=== PATIENT | female | born 1970 | race Caucasian/White ===

== ENCOUNTER 2016-05-16 17:53 | Inpatient (IN) | payer BC ==
[~2016-05-16] VITALS: Ht 167.6 cm; Wt 54.9 kg
[~2016-05-16 17:53] MED LIST: BACL20TA PO; DIME120C2 PO; DOCU250C68 PO; FLUC200T36 PO; HYDR-906 PO; IBUP200C70 PO; gabapentin
[2016-05-16 20:45] VITALS: BP 125/53; PULSE 60; RESP 18
[2016-05-16 22:00] VITALS: Ht 167.6 cm; Wt 54.9 kg
[2016-05-16] MEDS ORDERED: MAGNESIUM HYDROXIDE 30ML CUP PO PRN (23:30)
[2016-05-16] MEDS ORDERED: DOCUSATE SODIUM 100 MG CAP PO PRN (23:30)
[2016-05-16] MEDS ORDERED: ONDANSETRON 4 MG INJ IV PRN (23:30)
[2016-05-16] MEDS ORDERED: BISACODYL 10 MG SUPP PR PRN (23:30)
[2016-05-16] MEDS ORDERED: NACL 0.9% 3 ML SYG IV SCH (23:30)
[2016-05-16] MEDS ORDERED: BISACODYL (EC) 5 MG TAB PO PRN (23:30)
[2016-05-16] MEDS ORDERED: NA PHOSPHATE/BIPHOS 133 ML ENEMA PR PRN (23:30)
[2016-05-16] MEDS ORDERED: ACETAMINOPHEN 650 MG SUPP PR PRN (23:30)
[2016-05-17] VITALS (9 sets, daily range): BP systolic 74–98; BP diastolic 40–58; PULSE 77–92; RESP 16–20
[2016-05-17] MEDS: SOD CHLORIDE 0.9% 1,000 ML IV SCH ×2 (00:27→16:37)
[2016-05-17] MEDS: PANTOPRAZOLE 40 MG INJ IV SCH (05:49)
[2016-05-17] MEDS: BACLOFEN 10 MG TAB PO PRN ×3 (05:53→17:26)
[2016-05-17] MEDS: DOCUSATE SODIUM 250 MG CAP PO SCH (09:14)
[2016-05-17] MEDS: ENOXAPARIN 40 MG/0.4 ML SYG SC SCH (09:16)
[2016-05-17] MEDS ORDERED: SOD CHLORIDE 0.9% 500 ML IV STA (14:51)
[2016-05-17] MEDS ORDERED: VANCOMYCIN IV PER PHARMACY XX SCH (16:00)
--- NOTE | 2016-05-17 16:05 | QN ---
Documentation Comment [id number] SMITH GONZALEZ MD May 17, 2016 16:05
--- NOTE | 2016-05-17 16:28 | CONS ---
DATE OF ADMISSION: 05/16/2016 DATE OF CONSULTATION: 05/17/2016 TYPE OF CONSULTATION: Infectious disease. REASON FOR CONSULTATION: Antibiotic management. HISTORY OF PRESENT ILLNESS: Nanci Haywood is a 45-year-old unfortunate white female who comes in w ith osteomyelitis of her right ankle. Her past problems include: 1. Progressive multiple sclerosis, diagnosed at age 23. 2. Multiple urinary tract infections. 3. History of a heart murmur. 4. Scoliosis. 5. Depression. 6. Constipation. 7. Right ankle osteomyelitis. The patient reportedly had an ankle wound for at least 4 weeks. She has a wound over the lateral ma lleolus that probes down to bone. X-ray was done which showed severe osteoporosis. There is swelli ng around the ankle and hindfoot. PAST MEDICAL HISTORY: Operations as outlined. FAMILY HISTORY: Noncontributory. SOCIAL HISTORY: She does not smoke, drink or abuse drugs. ALLERGIES: 1. SULFA. 2. MORPHINE. 3. PROCHLORPERAZINE. MEDICATIONS: Per chart. REVIEW OF SYSTEMS: As per HPI. PHYSICAL EXAMINATION: GENERAL: The patient is a chronically ill-appearing white female who is alert, responsive, in no acu te distress. VITAL SIGNS: Stable. She is afebrile. SKIN: Without generalized rash. HEENT: Within normal limits. NECK: Supple. LYMPH NODES: None palpable. CHEST: Decreased breath sounds at the bases. HEART: Without murmur or gallop. ABDOMEN: Soft, nontender, without organosplenomegaly or masses. EXTREMITIES: The right ankle has a significant circumscribed area with granulation tissue within th e circumscribed area. RECTAL AND GENITAL EXAM: Deferred. The right buttock has a number of different lesions or excoriati ons as well as. NEUROLOGIC EVALUATION: Limited. She has marked contractures. She responds to questions. ASSESSMENT: Findings from the x-ray of the ankle from [facility] shows bone destruction in the lateral c ortex of the lateral malleolus, severe osteoporosis, stable-appearing ankle joint, swelling around t he ankle on the hindfoot. The bone destruction is due to osteomyelitis in the lateral cortex of the lateral malleolus. Microbiology was ordered. A wound consultation was ordered. The patient is cu rrently on no antibiotics. We are going to get blood cultures x2, culture of the wound, start her o n vancomycin and Levaquin, have podiatry evaluate her. I will dictate my findings to Dr. Narvaez. Dictated By: WENDY WALLACE MD, JD/CAN Conf#: [id number] DID#: [id number]
[2016-05-17] MEDS ORDERED: CEFTRIAXONE 500 MG in SOD CHLORIDE 0.9% 50 ML IVPB SCH (16:30)
--- NOTE | 2016-05-17 16:59 | HP ---
DATE OF ADMISSION: 05/16/2016 HISTORY OF PRESENT ILLNESS: Nanci Haywood is an 45-year-old female who was transferred from [facility] with the diagnosis of osteomyelitis. Patient has x-ray of the right ankle that was done, shows bone destruction due to _lateral malleolus, osteoporosis, stable appearing right ankle, gas is evident in soft tissue. The patient is being admitted for further management. Patient denies any fevers, chills or rigors. PAST MEDICAL HISTORY: Positive for multiple sclerosis, bed bound. The patient has decubitus wound. The patient also has history of contraction of hip and knee area. The patient has a history of anemia as well. ALLERGY HISTORY: 1. SULFA. 2. MORPHINE. 3. PROCHLORPERAZINE. MEDICATIONS AT HOME: Listed as: 1. Baclofen. 2. Rocephin. 3. Gabapentin. 4. Senna. 5. Tylenol. 6. Advil. 7. Colace. 8. Cranberry extract. 9. Heparin. 10. Ibuprofen. 11. Interferon beta, 1-a subcutaneous. 12. Nitrofurantoin 13. [place]. REVIEW OF SYSTEMS HEENT: Unremarkable. RESPIRATORY: Unremarkable. CARDIOVASCULAR: Unremarkable. ABDOMEN: Unremarkable. EXTREMITIES: Foot wound noted. CENTRAL NERVOUS SYSTEM: Unremarkable. PHYSICAL EXAMINATION: GENERAL: Pale-looking female, awake, alert. VITAL SIGNS: Stable. HEAD: Atraumatic, normocephalic. Pupils are equal and reactive. No pallor or conjunctival icterus. NECK: Supple. LUNGS: Clear. CARDIOVASCULAR: S1, S2 normal. ABDOMEN: Soft, nontender. Bowel sounds were normal . EXTREMITIES: Contraction noted of the lower extremity. The patient is awake, alert. [employer] examination with weakness of both upper and lower extremities. IMPRESSION: 1. Patient has a decubitus wound of the lower extremity. 2. The patient has multiple sclerosis, urinary incontinence, constipation, neuropathy. PLAN: To continue current treatment. Podiatry consultation will be obtained. Orders were done. Dictated By: SMITH GONZALEZ MD BS/NTS Conf#: [id number] DID#: [id number] [id number]
[2016-05-17] MEDS ORDERED: VANCOMYCIN 1.25 GM in SOD CHLORIDE 0.9% 250 ML IVPB ONE (17:00)
[2016-05-17] MEDS: LEVOFLOXACIN 500 MG TAB PO SCH (17:10)
[2016-05-17] MEDS: COLLAGENASE 30 GM TUBE TOP SCH (20:55)
[2016-05-18] MEDS: BACLOFEN 10 MG TAB PO PRN ×4 (04:24→20:37)
[2016-05-18] MEDS: PANTOPRAZOLE 40 MG INJ IV SCH (06:11)
[2016-05-18] MEDS: VANCOMYCIN 1 GM in NS 250 ML IVPB SCH ×2 (06:11→18:27)
[2016-05-18] MEDS: LEVOFLOXACIN 500 MG TAB PO SCH (06:11)
[2016-05-18 06:25] LABS: ADD SCAN DIFF NO
[2016-05-18 06:29] LABS: BASOPHILS % 0.2 % (0.0-2.0); EOSINOPHILS # 0.1 10^3/ul (0.0-0.5); EOSINOPHILS % 1.8 % (0.0-7.0); HEMOGLOBIN 10.5 g/dl (12.0-16.0); LYMPHOCYTES % 17.3 % (15.0-51.0); MEAN CORPUSCULAR HEMOGLOBIN 27.7 pg (29.0-33.0); MEAN CORPUSCULAR HGB CONC 31.8 g/dl (32.0-37.0); MEAN CORPUSCULAR VOLUME 87.1 fl (82.0-101.0); MEAN PLATELET VOLUME 9.7 fl (7.4-10.4); MONOCYTE # 0.4 10^3/ul (0.3-0.9); MONOCYTES % 7.3 % (0.0-11.0); NEUTROPHILS % 73.2 % (39.0-77.0); PLATELET COUNT 342 10^3/UL (140-415); RED BLOOD COUNT 3.79 10^6/ul (4.20-5.40); RED CELL DISTRIBUTION WIDTH 12.6 % (11.5-14.5); WHITE BLOOD COUNT 5.5 10^3/ul (4.8-10.8)
[2016-05-18 06:54] LABS: ALBUMIN 3.2 g/dl (3.3-4.9)
[2016-05-18 06:57] LABS: ALBUMIN/GLOBULIN RATIO 0.94; CREATININE 0.42 mg/dl (0.44-1.00); TOTAL PROTEIN 6.6 g/dl (6.1-8.1)
[2016-05-18 06:58] LABS: CALCIUM 8.7 mg/dl (8.4-10.2)
[2016-05-18 08:17] VITALS: BP 103/54; RESP 20
[2016-05-18] MEDS: DOCUSATE SODIUM 250 MG CAP PO SCH (10:21)
[2016-05-18] MEDS: HYDROCODONE/APAP (5/325) TAB PO PRN (10:21)
[2016-05-18] MEDS: COLLAGENASE 30 GM TUBE TOP SCH (10:22)
[2016-05-18] MEDS: ENOXAPARIN 40 MG/0.4 ML SYG SC SCH (10:33)
--- NOTE | 2016-05-18 11:05 | PN ---
DATE: 05/18/2016 SUBJECTIVE: No acute events. The patient is lying comfortably in bed. Denies pain. No fevers. WBC 5.5, platelets 342, no shift, no bands. BUN 4, creatinine 0.42. ANTIMICROBIALS: 1. Levaquin. 2. Vancomycin. INDWELLINGS: [place], peripheral IV. PHYSICAL EXAMINATION: GENERAL: This is a fragile, chronically ill-appearing, cachectic, middle-aged woman who is in no di stress. HEENT: Head atraumatic, normocephalic. Sclerae anicteric. Buccal mucosa dry. NECK: Supple, trachea midline. CHEST: Rise symmetrical. Breath sounds diminished to bases. HEART: S1, S2. ABDOMEN: Soft, bowel sounds present. EXTREMITIES: With right ankle dressing intact. ASSESSMENT: 1. Right ankle wound with evidence of osteomyelitis per x-ray from another facility. 2. Advanced multiple sclerosis. 3. Cachexia. 4. Depression. 5. Anemia. PLAN: The patient remains stable. Continue antibiotics, local wound care, await for wound cultures and blood cultures, consider podiatry evaluation. Dictated By: POP YOUNG [employer]IKE OPERATIONS OFFICER for WENDY WALLACE MD NI/NTS Conf#: [id number] DID#: [id number]
--- NOTE | 2016-05-18 17:54 | PN ---
Date/Time of Note Date/Time of Note DATE: 05/18/16 TIME: 17:52 Assessment/Plan VTE Prophylaxis VTE Prophylaxis Intervention: other Lines/Catheters IV Catheter Type (from Nrs): Peripheral IV Urinary Cath still in place: Yes Reason Cath still needed: other (indicate) Assessment/Plan Chief Complaint/Hosp Course IMPRESSION: 1. Patient has a decubitus wound of the lower extremity. 2. The patient has multiple sclerosis, urinary incontinence, constipation, neuropathy. 3 OSTEOMYELITES PLAN PER ID PODIATRY PENDING Problems: Subjective 24 Hr Interval Summary Subjective hx not possible: other (WEAKNESS) Respiratory: no complaints Cardiovascular: no complaints Exam/Review of Systems Vital Signs Vitals Vital Signs Date Time Temp Pulse Resp B/P Pulse Ox O2 Delivery O2 Flow Rate FiO2 05/18/16 08:17 98.4 76 20 103/54 93 05/16/16 20:45 Room Air Intake and Output 05/17/16 05/17/16 05/18/16 15:00 23:00 07:00 Intake Total 2710 ml 1600 ml Output Total 450 ml 1650 ml Balance 2260 ml -50 ml Exam Neck: supple Respiratory: clear to auscultation Cardiovascular: regular rate and rhythm Gastrointestinal: soft Musculoskeletal: nl extremities to inspection Extremities: normal pulses Skin: other (FOOT WOUND+) Results Result Diagram: 05/18/16 0535 05/18/16 0535 Results 24 hrs Laboratory Tests Test 05/18/16 05:35 Alanine Aminotransferase (ALT/SGPT) 27 Albumin 3.2 L Albumin/Globulin Ratio 0.94 Alkaline Phosphatase 69 Anion Gap 17 H Aspartate Amino Transf (AST/SGOT) 19 Basophils # 0.0 Basophils % 0.2 Blood Urea Nitrogen 4 L Calcium Level 8.7 Carbon Dioxide Level 26 Chloride Level 104 Creatinine 0.42 L Direct Bilirubin 0.00 Eosinophils # 0.1 Eosinophils % 1.8 Globulin 3.40 H Glucose Level 91 Hematocrit 33.0 L Hemoglobin 10.5 L Indirect Bilirubin 0.0 Lymphocytes # 1.0 Lymphocytes % 17.3 Mean Corpuscular Hemoglobin 27.7 L Mean Corpuscular Hemoglobin Concent 31.8 L Mean Corpuscular Volume 87.1 Mean Platelet Volume 9.7 Monocytes # 0.4 Monocytes % 7.3 Neutrophils # 4.0 Neutrophils % 73.2 Nucleated Red Blood Cells # 0.0 Nucleated Red Blood Cells % 0.0 Platelet Count 342 Potassium Level 4.0 Red Blood Count 3.79 L Red Cell Distribution Width 12.6 Sodium Level 143 Total Bilirubin 0.0 L Total Protein 6.6 White Blood Count 5.5 Medications Medications Current Medications Baclofen (Lioresal) 20 mg Q4 PRN PO MUSCLE SPASMS Last administered on 15:54; Admin Dose 20 MG; Start 05/16/16 at 23:30 Docusate Sodium (Colace) 250 mg DAILY PO Last administered on 05/18/16 10:21; Admin Dose 250 MG; Start 05/17/16 at 09:00 Acetaminophen/ Hydrocodone Bitart 1 tab 1 tab Q6 PRN PO PAIN Last administered on 05/18/16 10:21; Admin Dose 1 TAB; Start 05/16/16 at 23:30 Sodium Chloride (NS) 1,000 ml @ 40 mls/hr Q24H IV Last administered on 16:37; Admin Dose 40 MLS/HR; Start 05/16/16 at 23:01 Ondansetron HCl (Zofran Inj) 4 mg Q6H PRN IV NAUSEA AND/OR VOMITING; Start 05/16 at 23:30 Acetaminophen (Tylenol Tab) 650 mg Q6H PRN PO PAIN LEVEL 1-3 OR FEVER; Start at 23:30 Acetaminophen (Tylenol Supp) 650 mg Q6H PRN [place] PAIN LEVEL 1-3 OR FEVER; Start 05/16/16 at 23:30 Ibuprofen (Motrin) 600 mg Q6H PRN PO PAIN LEVEL 1-3; Start 05/16/16 at 23:30 Docusate Sodium (Colace) 100 mg Q12H PRN PO CONSTIPATION; Start 05/16/16 at 23: 30 Magnesium Hydroxide (Milk Of Mag) 30 ml DAILY PRN PO CONSTIPATION; Start at 23:30 Bisacodyl (Dulcolax) 5 mg DAILY PRN PO CONSTIPATION; Start 05/16/16 at 23:30 Bisacodyl (Dulcolax Supp) 10 mg DAILY PRN [place] CONSTIPATION; Start 05/16/16 at 23: 30 Sodium Biphosphate/ Sodium Phosphate (Fleet Enema) 133 ml DAILY PRN [place] CONSTIPATION; Start 05/16/16 at 23:30 Enoxaparin Sodium (Lovenox) 40 mg DAILY SC Last administered on 05/18/16 10:33 ; Admin Dose 40 MG; Start 05/17/16 at 09:00 Levofloxacin 500 mg 500 mg DAILY@06 PO Last administered on 05/18/16 06:11; Admin Dose 500 MG; Start 05/17/16 at 17:00 Vancomycin HCl (Vancocin) 250 ml @ 125 mls/hr Q12H IVPB Last administered on 06:11; Admin Dose 125 MLS/HR; Start 05/18/16 at 06:00 Collagenase (Santyl) 1 applic DAILY TOP Last administered on 05/18/16 10:22; Admin Dose 1 APPLIC; Start 05/17/16 at 21:00 Miscellaneous Information (*Rx Drug Level Order Reminder*) VANCO TROUGH @ 0, 500 ON... ONCE ONCE XX ; Start 05/19/16 at 05:00; Stop 05/19/16 at 05:01 Pantoprazole (Protonix Tab) 40 mg DAILY@06 PO ; Start 05/19/16 at 06:00 SMITH GONZALEZ MD May 18, 2016 17:54
[2016-05-18 20:00] VITALS: BP 125/59; RESP 18
[2016-05-18 20:34] VITALS: BP 125/59; PULSE 62; RESP 16
[2016-05-18] MEDS: SOD CHLORIDE 0.9% 1,000 ML IV SCH (23:01)
[2016-05-19] MEDS: BACLOFEN 10 MG TAB PO PRN ×5 (00:09→17:51)
[2016-05-19] MEDS: IBUPROFEN 600 MG TAB PO PRN ×2 (00:33→14:56)
[2016-05-19] MEDS: PANTOPRAZOLE (EC) 40 MG TAB PO SCH (05:05)
[2016-05-19] MEDS: LEVOFLOXACIN 500 MG TAB PO SCH (05:05)
[2016-05-19] MEDS: VANCOMYCIN 1 GM in NS 250 ML IVPB SCH ×2 (06:23→17:51)
[2016-05-19] MEDS: COLLAGENASE 30 GM TUBE TOP SCH ×2 (06:47→08:58)
[2016-05-19] MEDS: DOCUSATE SODIUM 250 MG CAP PO SCH (08:59)
[2016-05-19] MEDS: ENOXAPARIN 40 MG/0.4 ML SYG SC SCH (09:02)
--- NOTE | 2016-05-19 13:38 | CONS ---
Date/Time of Note Date/Time of Note DATE: 05/19/16 TIME: 13:37 Assessment/Plan Assessment/Plan Chief Complaint/Hosp Course SUBJECTIVE: No acute events. The patient is alert, eating lunch, feels good, no fevers, nad ANTIMICROBIALS: 1. Levaquin. 2. Vancomycin. INDWELLINGS: [place], peripheral IV. PHYSICAL EXAMINATION: GENERAL: This is a fragile, chronically ill-appearing, cachectic, middle-aged woman who is in no distress. HEENT: Head atraumatic, normocephalic. Sclerae anicteric. Buccal mucosa dry. NECK: Supple, trachea midline. CHEST: Rise symmetrical. Breath sounds diminished to bases. HEART: S1, S2. ABDOMEN: Soft, bowel sounds present. EXTREMITIES: With right ankle dressing intact. ASSESSMENT: 1. Right ankle wound with evidence of osteomyelitis per x-ray from another facility. 2. Advanced multiple sclerosis. 3. Cachexia. 4. Depression. 5. Anemia. PLAN: The patient remains stable. Continue antibiotics, local wound care, await for wound cultures and blood cultures, pending podiatry evaluation. DW staff Problems: Consultation Date/Type/Reason Admit Date/Time May 16, 2016 at 21:29 Initial Consult Date Type of Consultation: ID Exam/Review of Systems Vital Signs Vitals Vital Signs Date Time Temp Pulse Resp B/P Pulse Ox O2 Delivery O2 Flow Rate FiO2 05/18/16 20:34 98.4 62 16 125/59 05/18/16 20:00 96 05/16/16 20:45 Room Air Intake and Output 05/18/16 05/18/16 05/19/16 15:00 23:00 07:00 Intake Total 250 ml 1730 ml 1650 ml Output Total 1800 ml 1550 ml Balance 250 ml -70 ml 100 ml Results Result Diagram: 05/18/16 0535 05/18/16 0535 Results 24 hrs Laboratory Tests Test 05/19/16 05:00 Vancomycin Level Trough 13.0 Medications Medications Current Medications Baclofen (Lioresal) 20 mg Q4 PRN PO MUSCLE SPASMS Last administered on 13:07; Admin Dose 20 MG; Start 05/16/16 at 23:30 Docusate Sodium (Colace) 250 mg DAILY PO Last administered on 05/19/16 08:59; Admin Dose 250 MG; Start 05/17/16 at 09:00 Acetaminophen/ Hydrocodone Bitart 1 tab 1 tab Q6 PRN PO PAIN Last administered on 05/18/16 10:21; Admin Dose 1 TAB; Start 05/16/16 at 23:30 Sodium Chloride (NS) 1,000 ml @ 40 mls/hr Q24H IV Last administered on 16:37; Admin Dose 40 MLS/HR; Start 05/16/16 at 23:01 Ondansetron HCl (Zofran Inj) 4 mg Q6H PRN IV NAUSEA AND/OR VOMITING; Start 05/16 at 23:30 Acetaminophen (Tylenol Tab) 650 mg Q6H PRN PO PAIN LEVEL 1-3 OR FEVER; Start at 23:30 Acetaminophen (Tylenol Supp) 650 mg Q6H PRN [place] PAIN LEVEL 1-3 OR FEVER; Start 05/16/16 at 23:30 Ibuprofen (Motrin) 600 mg Q6H PRN PO PAIN LEVEL 1-3 Last administered on 00:33; Admin Dose 600 MG; Start 05/16/16 at 23:30 Docusate Sodium (Colace) 100 mg Q12H PRN PO CONSTIPATION; Start 05/16/16 at 23: 30 Magnesium Hydroxide (Milk Of Mag) 30 ml DAILY PRN PO CONSTIPATION; Start at 23:30 Bisacodyl (Dulcolax) 5 mg DAILY PRN PO CONSTIPATION; Start 05/16/16 at 23:30 Bisacodyl (Dulcolax Supp) 10 mg DAILY PRN [place] CONSTIPATION; Start 05/16/16 at 23: 30 Sodium Biphosphate/ Sodium Phosphate (Fleet Enema) 133 ml DAILY PRN [place] CONSTIPATION; Start 05/16/16 at 23:30 Enoxaparin Sodium (Lovenox) 40 mg DAILY SC Last administered on 05/19/16 09:02 ; Admin Dose 40 MG; Start 05/17/16 at 09:00 Levofloxacin 500 mg 500 mg DAILY@06 PO Last administered on 05/19/16 05:05; Admin Dose 500 MG; Start 05/17/16 at 17:00 Vancomycin HCl (Vancocin) 250 ml @ 125 mls/hr Q12H IVPB Last administered on 06:23; Admin Dose 125 MLS/HR; Start 05/18/16 at 06:00 Collagenase (Santyl) 1 applic DAILY TOP Last administered on 05/19/16 08:58; Admin Dose 1 APPLIC; Start 05/17/16 at 21:00 Pantoprazole (Protonix Tab) 40 mg DAILY@06 PO Last administered on 05/19/16 05: 05; Admin Dose 40 MG; Start 05/19/16 at 06:00 POP YOUNG NP May 19, 2016 13:38
--- NOTE | 2016-05-19 16:59 | PN ---
Date/Time of Note Date/Time of Note DATE: 05/19/16 TIME: 16:58 Assessment/Plan VTE Prophylaxis VTE Prophylaxis Intervention: other Lines/Catheters IV Catheter Type (from Nrsg): Peripheral IV Urinary Cath still in place: Yes Reason Cath still needed: other (indicate) Assessment/Plan Chief Complaint/Hosp Course IMPRESSION: 1. Patient has a decubitus wound of the lower extremity. 2. The patient has multiple sclerosis, urinary incontinence, constipation, neuropathy. 3 OSTEOMYELITES PLAN PER ID PODIATRY PENDING ANTIBIOTIC SNF PLACEMENT Problems: Subjective 24 Hr Interval Summary Cardiovascular: no complaints Gastrointestinal: no complaints Exam/Review of Systems Vital Signs Vitals Vital Signs Date Time Temp Pulse Resp B/P Pulse Ox O2 Delivery O2 Flow Rate FiO2 05/18/16 20:34 98.4 62 16 125/59 05/18/16 20:00 96 05/16/16 20:45 Room Air Intake and Output 05/18/16 05/18/16 05/19/16 15:00 23:00 07:00 Intake Total 250 ml 1730 ml 1650 ml Output Total 1800 ml 1550 ml Balance 250 ml -70 ml 100 ml Exam Respiratory: clear to auscultation Cardiovascular: regular rate and rhythm Gastrointestinal: soft Musculoskeletal: nl extremities to inspection Results Result Diagram: 05/18/16 0535 05/18/16 0535 Results 24 hrs Laboratory Tests Test 05/19/16 05:00 Vancomycin Level Trough 13.0 Medications Medications Current Medications Baclofen (Lioresal) 20 mg Q4 PRN PO MUSCLE SPASMS Last administered on 13:07; Admin Dose 20 MG; Start 05/16/16 at 23:30 Docusate Sodium (Colace) 250 mg DAILY PO Last administered on 05/19/16 08:59; Admin Dose 250 MG; Start 05/17/16 at 09:00 Acetaminophen/ Hydrocodone Bitart 1 tab 1 tab Q6 PRN PO PAIN Last administered on 05/18/16 10:21; Admin Dose 1 TAB; Start 05/16/16 at 23:30 Sodium Chloride (NS) 1,000 ml @ 40 mls/hr Q24H IV Last administered on 16:37; Admin Dose 40 MLS/HR; Start 05/16/16 at 23:01 Ondansetron HCl (Zofran Inj) 4 mg Q6H PRN IV NAUSEA AND/OR VOMITING; Start 05/16 at 23:30 Acetaminophen (Tylenol Tab) 650 mg Q6H PRN PO PAIN LEVEL 1-3 OR FEVER; Start at 23:30 Acetaminophen (Tylenol Supp) 650 mg Q6H PRN [place] PAIN LEVEL 1-3 OR FEVER; Start 05/16/16 at 23:30 Ibuprofen (Motrin) 600 mg Q6H PRN PO PAIN LEVEL 1-3 Last administered on 14:56; Admin Dose 600 MG; Start 05/16/16 at 23:30 Docusate Sodium (Colace) 100 mg Q12H PRN PO CONSTIPATION; Start 05/16/16 at 23: 30 Magnesium Hydroxide (Milk Of Mag) 30 ml DAILY PRN PO CONSTIPATION; Start at 23:30 Bisacodyl (Dulcolax) 5 mg DAILY PRN PO CONSTIPATION; Start 05/16/16 at 23:30 Bisacodyl (Dulcolax Supp) 10 mg DAILY PRN [place] CONSTIPATION; Start 05/16/16 at 23: 30 Sodium Biphosphate/ Sodium Phosphate (Fleet Enema) 133 ml DAILY PRN [place] CONSTIPATION; Start 05/16/16 at 23:30 Enoxaparin Sodium (Lovenox) 40 mg DAILY SC Last administered on 05/19/16 09:02 ; Admin Dose 40 MG; Start 05/17/16 at 09:00 Levofloxacin 500 mg 500 mg DAILY@06 PO Last administered on 05/19/16 05:05; Admin Dose 500 MG; Start 05/17/16 at 17:00 Vancomycin HCl (Vancocin) 250 ml @ 125 mls/hr Q12H IVPB Last administered on 06:23; Admin Dose 125 MLS/HR; Start 05/18/16 at 06:00 Collagenase (Santyl) 1 applic DAILY TOP Last administered on 05/19/16 08:58; Admin Dose 1 APPLIC; Start 05/17/16 at 21:00 Pantoprazole (Protonix Tab) 40 mg DAILY@06 PO Last administered on 05/19/16 05: 05; Admin Dose 40 MG; Start 05/19/16 at 06:00 SMITH GONZALEZ MD May 19, 2016 16:59
[2016-05-19 20:00] VITALS: BP 103/49; RESP 18
--- NOTE | 2016-05-19 21:16 | CONS ---
Date/Time of Note Date/Time of Note DATE: 05/19/16 TIME: 21:15 Assessment/Plan Assessment/Plan Problems: (1) Ulcer of right ankle (2) Multiple sclerosis (3) Contracture of muscle of lower extremity, bilateral Additional Assessment/Plan Must offload the right lateral ankle (malleolus). Santyl to wound with daily dressing change. Will follow. Consultation Date/Type/Reason Admit Date/Time May 16, 2016 at 21:29 Hx of Present Illness Thank you very much for involving me in the care of this patient. As you very well know this is a 45-year-old female patient who was originally transferred from [facility] with diagnosis of osteomyelitis. Patient has an open wound on her right ankle and I was consulted to evaluate and treat. Patient apparently has x-rays of the right ankle which shows bony destruction to the lateral malleolus. Patient reports that she has MS and she is nonambulatory for several years. Patient denies fever chills nausea or vomiting. Reports no chest pain or shortness of breath. As per history of present illness. Respiratory: no complaints Cardiovascular: no complaints Gastrointestinal: no complaints Past Medical History As per history of present illness. Past Surgical History As per history of present illness. Social History As per history of present illness. Smoking Status: Never smoker Exam/Review of Systems Vital Signs Vitals Vital Signs Date Time Temp Pulse Resp B/P Pulse Ox O2 Delivery O2 Flow Rate FiO2 05/18/16 20:34 98.4 62 16 125/59 05/18/16 20:00 96 05/16/16 20:45 Room Air Intake and Output 05/18/16 05/18/16 05/19/16 15:00 23:00 07:00 Intake Total 250 ml 1730 ml 1650 ml Output Total 1800 ml 1550 ml Balance 250 ml -70 ml 100 ml Exam Patient is laying in bed in no acute distress. She has severe lower extremity contractures. Her right ankle is weightbearing at this time and her left foot and ankle is resting on top of the right. There is an open wound on the lateral malleolus area measuring 2 x 2 cm with probing to bone. There is fibronecrotic tissue present. There is no surrounding erythema and no drainage of pus or bleeding. There is no x-ray for me to review. X-ray will be ordered. There is no tenderness to palpation. Patient has significantly decreased sensation in the lower extremities to sharp dull vibratory and temperature stimuli. No other open wound noted bilaterally. Dorsalis pedis and posterior tibial pulses weak on both legs. Labs reviewed. Results Result Diagram: 05/18/16 0535 05/18/16 0535 Results 24 hrs Laboratory Tests Test 05/19/16 05:00 Vancomycin Level Trough 13.0 Medications Medications Current Medications Baclofen (Lioresal) 20 mg Q4 PRN PO MUSCLE SPASMS Last administered on 17:51; Admin Dose 20 MG; Start 05/16/16 at 23:30 Docusate Sodium (Colace) 250 mg DAILY PO Last administered on 05/19/16 08:59; Admin Dose 250 MG; Start 05/17/16 at 09:00 Acetaminophen/ Hydrocodone Bitart 1 tab 1 tab Q6 PRN PO PAIN Last administered on 05/18/16 10:21; Admin Dose 1 TAB; Start 05/16/16 at 23:30 Sodium Chloride (NS) 1,000 ml @ 40 mls/hr Q24H IV Last administered on 16:37; Admin Dose 40 MLS/HR; Start 05/16/16 at 23:01 Ondansetron HCl (Zofran Inj) 4 mg Q6H PRN IV NAUSEA AND/OR VOMITING; Start 05/16 at 23:30 Acetaminophen (Tylenol Tab) 650 mg Q6H PRN PO PAIN LEVEL 1-3 OR FEVER; Start at 23:30 Acetaminophen (Tylenol Supp) 650 mg Q6H PRN [place] PAIN LEVEL 1-3 OR FEVER; Start 05/16/16 at 23:30 Ibuprofen (Motrin) 600 mg Q6H PRN PO PAIN LEVEL 1-3 Last administered on 14:56; Admin Dose 600 MG; Start 05/16/16 at 23:30 Docusate Sodium (Colace) 100 mg Q12H PRN PO CONSTIPATION; Start 05/16/16 at 23: 30 Magnesium Hydroxide (Milk Of Mag) 30 ml DAILY PRN PO CONSTIPATION; Start at 23:30 Bisacodyl (Dulcolax) 5 mg DAILY PRN PO CONSTIPATION; Start 05/16/16 at 23:30 Bisacodyl (Dulcolax Supp) 10 mg DAILY PRN [place] CONSTIPATION; Start 05/16/16 at 23: 30 Sodium Biphosphate/ Sodium Phosphate (Fleet Enema) 133 ml DAILY PRN [place] CONSTIPATION; Start 05/16/16 at 23:30 Enoxaparin Sodium (Lovenox) 40 mg DAILY SC Last administered on 05/19/16 09:02 ; Admin Dose 40 MG; Start 05/17/16 at 09:00 Levofloxacin 500 mg 500 mg DAILY@06 PO Last administered on 05/19/16 05:05; Admin Dose 500 MG; Start 05/17/16 at 17:00 Vancomycin HCl (Vancocin) 250 ml @ 125 mls/hr Q12H IVPB Last administered on 17:51; Admin Dose 125 MLS/HR; Start 05/18/16 at 06:00 Collagenase (Santyl) 1 applic DAILY TOP Last administered on 05/19/16 08:58; Admin Dose 1 APPLIC; Start 05/17/16 at 21:00 Pantoprazole (Protonix Tab) 40 mg DAILY@06 PO Last administered on 05/19/16 05: 05; Admin Dose 40 MG; Start 05/19/16 at 06:00 JEFFERSON WHEELER DPM May 19, 2016 21:16
[2016-05-19] MEDS: SOD CHLORIDE 0.9% 1,000 ML IV SCH (22:10)
[2016-05-20] MEDS: BACLOFEN 10 MG TAB PO PRN ×4 (03:06→19:02)
[2016-05-20] MEDS: PANTOPRAZOLE (EC) 40 MG TAB PO SCH (06:14)
[2016-05-20] MEDS: LEVOFLOXACIN 500 MG TAB PO SCH (06:14)
[2016-05-20] MEDS: VANCOMYCIN 1 GM in NS 250 ML IVPB SCH ×2 (06:14→17:08)
[2016-05-20 08:11] VITALS: BP 105/54; RESP 16
[2016-05-20] MEDS: DOCUSATE SODIUM 250 MG CAP PO SCH (08:44)
[2016-05-20] MEDS: ENOXAPARIN 40 MG/0.4 ML SYG SC SCH (08:45)
[2016-05-20] MEDS: COLLAGENASE 30 GM TUBE TOP SCH (10:41)
[2016-05-20] MEDS: ACETAMINOPHEN 325 MG TAB PO PRN (10:44)
[2016-05-20] MEDS: HYDROCODONE/APAP (5/325) TAB PO PRN (13:16)
--- NOTE | 2016-05-20 15:34 | CONS ---
Date/Time of Note Date/Time of Note DATE: 05/20/16 TIME: 15:33 Assessment/Plan Assessment/Plan Chief Complaint/Hosp Course SUBJECTIVE: No acute events. The patient is alert, feels good, no fevers, nad ANTIMICROBIALS: 1. Levaquin. 2. Vancomycin. INDWELLINGS: [place], peripheral IV. PHYSICAL EXAMINATION: GENERAL: This is a fragile, chronically ill-appearing, cachectic, middle-aged woman who is in no distress. HEENT: Head atraumatic, normocephalic. Sclerae anicteric. Buccal mucosa dry. NECK: Supple, trachea midline. CHEST: Rise symmetrical. Breath sounds diminished to bases. HEART: S1, S2. ABDOMEN: Soft, bowel sounds present. EXTREMITIES: With right ankle dressing intact. ASSESSMENT: 1. Right ankle wound with evidence of osteomyelitis per x-ray from another facility. 2. Advanced multiple sclerosis. 3. Cachexia. 4. Depression. 5. Anemia. PLAN: The patient remains stable. Continue antibiotics, local wound care, await for final wound cultures and f/u podiatry rec-s. [facility] staff Problems: Consultation Date/Type/Reason Admit Date/Time May 16, 2016 at 21:29 Type of Consultation: ID Exam/Review of Systems Vital Signs Vitals Vital Signs Date Time Temp Pulse Resp B/P Pulse Ox O2 Delivery O2 Flow Rate FiO2 05/20/16 08:11 98.2 60 16 105/54 98 05/16/16 20:45 Room Air Intake and Output 05/19/16 05/19/16 05/20/16 15:00 23:00 07:00 Intake Total 250 ml 1370 ml 1240 ml Output Total 1300 ml 1350 ml Balance 250 ml 70 ml -110 ml Results Result Diagram: 05/18/16 0535 05/18/16 0535 Medications Medications Current Medications Baclofen (Lioresal) 20 mg Q4 PRN PO MUSCLE SPASMS Last administered on 14:59; Admin Dose 20 MG; Start 05/16/16 at 23:30 Docusate Sodium (Colace) 250 mg DAILY PO Last administered on 05/20/16 08:44; Admin Dose 250 MG; Start 05/17/16 at 09:00 Acetaminophen/ Hydrocodone Bitart 1 tab 1 tab Q6 PRN PO PAIN Last administered on 05/20/16 13:16; Admin Dose 1 TAB; Start 05/16/16 at 23:30 Sodium Chloride (NS) 1,000 ml @ 40 mls/hr Q24H IV Last administered on 22:10; Admin Dose 40 MLS/HR; Start 05/16/16 at 23:01 Ondansetron HCl (Zofran Inj) 4 mg Q6H PRN IV NAUSEA AND/OR VOMITING; Start 05/16 at 23:30 Acetaminophen (Tylenol Tab) 650 mg Q6H PRN PO PAIN LEVEL 1-3 OR FEVER Last administered on 05/20/16 10:44; Admin Dose 650 MG; Start 05/16/16 at 23:30 Acetaminophen (Tylenol Supp) 650 mg Q6H PRN [place] PAIN LEVEL 1-3 OR FEVER; Start 05/16/16 at 23:30 Ibuprofen (Motrin) 600 mg Q6H PRN PO PAIN LEVEL 1-3 Last administered on 14:56; Admin Dose 600 MG; Start 05/16/16 at 23:30 Docusate Sodium (Colace) 100 mg Q12H PRN PO CONSTIPATION; Start 05/16/16 at 23: 30 Magnesium Hydroxide (Milk Of Mag) 30 ml DAILY PRN PO CONSTIPATION; Start at 23:30 Bisacodyl (Dulcolax) 5 mg DAILY PRN PO CONSTIPATION; Start 05/16/16 at 23:30 Bisacodyl (Dulcolax Supp) 10 mg DAILY PRN [place] CONSTIPATION; Start 05/16/16 at 23: 30 Sodium Biphosphate/ Sodium Phosphate (Fleet Enema) 133 ml DAILY PRN [place] CONSTIPATION; Start 05/16/16 at 23:30 Enoxaparin Sodium (Lovenox) 40 mg DAILY SC Last administered on 05/20/16 08:45 ; Admin Dose 40 MG; Start 05/17/16 at 09:00 Levofloxacin 500 mg 500 mg DAILY@06 PO Last administered on 05/20/16 06:14; Admin Dose 500 MG; Start 05/17/16 at 17:00 Vancomycin HCl (Vancocin) 250 ml @ 125 mls/hr Q12H IVPB Last administered on 06:14; Admin Dose 125 MLS/HR; Start 05/18/16 at 06:00 Collagenase (Santyl) 1 applic DAILY TOP Last administered on 05/20/16 10:41; Admin Dose 1 APPLIC; Start 05/17/16 at 21:00 Pantoprazole (Protonix Tab) 40 mg DAILY@06 PO Last administered on 05/20/16 06: 14; Admin Dose 40 MG; Start 05/19/16 at 06:00 POP YOUNG NP May 20, 2016 15:34
[2016-05-20] MEDS ORDERED: LEVO500T72 PO (17:24)
[2016-05-20] MEDS ORDERED: SAN30GM TOP (17:24)
[2016-05-20] MEDS ORDERED: DULR PR (17:24)
[2016-05-20] MEDS ORDERED: PANT40TA4 PO (17:24)
[2016-05-20] MEDS ORDERED: Vancomycin Iv Per Pharmacy XX (17:24)
--- NOTE | 2016-05-20 17:26 | PDOCDIS ---
Discharge Instructions CONDITION Patient Condition: Stable HOME CARE INSTRUCTIONS: Special Diet: Regular Diet ACTIVITY: Activity Restrictions: Slowly Increase Activity FOLLOW UP/APPOINTMENTS Appointments F/U PCP [address] HERMOSILLO /DR PEDROZA 2 WKS SMITH GONZALEZ MD May 20, 2016 17:26
--- NOTE | 2016-05-20 17:28 | PN ---
Date/Time of Note Date/Time of Note DATE: 05/20/16 TIME: 17:27 Assessment/Plan VTE Prophylaxis VTE Prophylaxis Intervention: other Lines/Catheters IV Catheter Type (from Nrsg): Peripheral IV Urinary Cath still in place: Yes Reason Cath still needed: other (indicate) Assessment/Plan Chief Complaint/Hosp Course IMPRESSION: 1. Patient has a decubitus wound of the lower extremity. 2. The patient has multiple sclerosis, urinary incontinence, constipation, neuropathy. 3 OSTEOMYELITES PLAN PER ID PODIATRY SEEN ANTIBIOTIC SNF PLACEMENT Problems: Subjective 24 Hr Interval Summary Gastrointestinal: no complaints Genitourinary: no complaints Musculoskeletal: no complaints Exam/Review of Systems Vital Signs Vitals Vital Signs Date Time Temp Pulse Resp B/P Pulse Ox O2 Delivery O2 Flow Rate FiO2 05/20/16 08:11 98.2 60 16 105/54 98 05/16/16 20:45 Room Air Intake and Output 05/19/16 05/19/16 05/20/16 15:00 23:00 07:00 Intake Total 250 ml 1370 ml 1240 ml Output Total 1300 ml 1350 ml Balance 250 ml 70 ml -110 ml Exam Respiratory: clear to auscultation Cardiovascular: regular rate and rhythm Gastrointestinal: soft Results Result Diagram: 05/18/16 0535 05/18/16 0535 Medications Medications Current Medications Baclofen (Lioresal) 20 mg Q4 PRN PO MUSCLE SPASMS Last administered on 14:59; Admin Dose 20 MG; Start 05/16/16 at 23:30 Docusate Sodium (Colace) 250 mg DAILY PO Last administered on 05/20/16 08:44; Admin Dose 250 MG; Start 05/17/16 at 09:00 Acetaminophen/ Hydrocodone Bitart 1 tab 1 tab Q6 PRN PO PAIN Last administered on 05/20/16 13:16; Admin Dose 1 TAB; Start 05/16/16 at 23:30 Sodium Chloride (NS) 1,000 ml @ 40 mls/hr Q24H IV Last administered on 22:10; Admin Dose 40 MLS/HR; Start 05/16/16 at 23:01 Ondansetron HCl (Zofran Inj) 4 mg Q6H PRN IV NAUSEA AND/OR VOMITING; Start 05/16 at 23:30 Acetaminophen (Tylenol Tab) 650 mg Q6H PRN PO PAIN LEVEL 1-3 OR FEVER Last administered on 05/20/16 10:44; Admin Dose 650 MG; Start 05/16/16 at 23:30 Acetaminophen (Tylenol Supp) 650 mg Q6H PRN [place] PAIN LEVEL 1-3 OR FEVER; Start 05/16/16 at 23:30 Ibuprofen (Motrin) 600 mg Q6H PRN PO PAIN LEVEL 1-3 Last administered on 14:56; Admin Dose 600 MG; Start 05/16/16 at 23:30 Docusate Sodium (Colace) 100 mg Q12H PRN PO CONSTIPATION; Start 05/16/16 at 23: 30 Magnesium Hydroxide (Milk Of Mag) 30 ml DAILY PRN PO CONSTIPATION; Start at 23:30 Bisacodyl (Dulcolax) 5 mg DAILY PRN PO CONSTIPATION; Start 05/16/16 at 23:30 Bisacodyl (Dulcolax Supp) 10 mg DAILY PRN [place] CONSTIPATION; Start 05/16/16 at 23: 30 Sodium Biphosphate/ Sodium Phosphate (Fleet Enema) 133 ml DAILY PRN [place] CONSTIPATION; Start 05/16/16 at 23:30 Enoxaparin Sodium (Lovenox) 40 mg DAILY SC Last administered on 05/20/16 08:45 ; Admin Dose 40 MG; Start 05/17/16 at 09:00 Levofloxacin 500 mg 500 mg DAILY@06 PO Last administered on 05/20/16 06:14; Admin Dose 500 MG; Start 05/17/16 at 17:00 Vancomycin HCl (Vancocin) 250 ml @ 125 mls/hr Q12H IVPB Last administered on 17:08; Admin Dose 125 MLS/HR; Start 05/18/16 at 06:00 Collagenase (Santyl) 1 applic DAILY TOP Last administered on 05/20/16 10:41; Admin Dose 1 APPLIC; Start 05/17/16 at 21:00 Pantoprazole (Protonix Tab) 40 mg DAILY@06 PO Last administered on 05/20/16 06: 14; Admin Dose 40 MG; Start 05/19/16 at 06:00 SMITH GONZALEZ MD May 20, 2016 17:28
[2016-05-20 20:15] VITALS: BP 88/53; RESP 18
[2016-05-20] MEDS ORDERED: VITAMIN A & D 5 GM OINT PACKET TOP ONE (20:36)
[2016-05-20] MEDS: SOD CHLORIDE 0.9% 1,000 ML IV SCH (23:01)
[2016-05-21] MEDS: BACLOFEN 10 MG TAB PO PRN ×6 (00:23→22:44)
[2016-05-21] MEDS: SOD CHLORIDE 0.9% 1,000 ML IV SCH ×2 (04:17→23:01)
[2016-05-21] MEDS: LEVOFLOXACIN 500 MG TAB PO SCH (05:21)
[2016-05-21] MEDS: VANCOMYCIN 1 GM in NS 250 ML IVPB SCH (05:21)
[2016-05-21] MEDS: PANTOPRAZOLE (EC) 40 MG TAB PO SCH (05:21)
[2016-05-21 07:55] VITALS: BP 123/57; RESP 18
[2016-05-21] MEDS ORDERED: LIDOCAINE 1% (MDV) 20 ML INJ SC ONE (08:00)
[2016-05-21] MEDS: COLLAGENASE 30 GM TUBE TOP SCH (09:00)
[2016-05-21] MEDS: DOCUSATE SODIUM 250 MG CAP PO SCH (09:16)
[2016-05-21] MEDS: ENOXAPARIN 40 MG/0.4 ML SYG SC SCH (09:29)
--- NOTE | 2016-05-21 12:22 | CONS ---
Date/Time of Note Date/Time of Note DATE: 05/21/16 TIME: 12:21 Assessment/Plan Assessment/Plan Chief Complaint/Hosp Course SUBJECTIVE: No acute events. no fevers, sleeping, nad ANTIMICROBIALS: 1. Levaquin. 2. Vancomycin. INDWELLINGS: [place], peripheral IV. PHYSICAL EXAMINATION: GENERAL: This is a fragile, chronically ill-appearing, cachectic, middle-aged woman who is in no distress. HEENT: Head atraumatic, normocephalic. Sclerae anicteric. Buccal mucosa dry. NECK: Supple, trachea midline. CHEST: Rise symmetrical. Breath sounds diminished to bases. HEART: S1, S2. ABDOMEN: Soft, bowel sounds present. EXTREMITIES: With right ankle dressing intact. ASSESSMENT: 1. Right ankle wound with evidence of osteomyelitis per x-ray from another facility===> wound cx + MDRO. 2. Advanced multiple sclerosis. 3. Cachexia. 4. Depression. 5. Anemia. PLAN: The patient remains stable. Change antibiotics to Colistin, continue local wound care, f/u podiatry rec-s. [facility] staff Problems: Consultation Date/Type/Reason Admit Date/Time May 16, 2016 at 21:29 Type of Consultation: ID Exam/Review of Systems Vital Signs Vitals Vital Signs Date Time Temp Pulse Resp B/P Pulse Ox O2 Delivery O2 Flow Rate FiO2 05/21/16 07:55 97.8 90 18 123/57 97 Intake and Output 05/20/16 05/20/16 05/21/16 15:00 23:00 07:00 Intake Total 3050 ml 1060 ml Output Total 4000 ml 1000 ml Balance -950 ml 60 ml Results Result Diagram: 05/18/16 0535 05/18/16 0535 Medications Medications Current Medications Baclofen (Lioresal) 20 mg Q4 PRN PO MUSCLE SPASMS Last administered on 09:16; Admin Dose 20 MG; Start 05/16/16 at 23:30 Docusate Sodium (Colace) 250 mg DAILY PO Last administered on 05/21/16 09:16; Admin Dose 250 MG; Start 05/17/16 at 09:00 Acetaminophen/ Hydrocodone Bitart 1 tab 1 tab Q6 PRN PO PAIN Last administered on 05/20/16 13:16; Admin Dose 1 TAB; Start 05/16/16 at 23:30 Sodium Chloride (NS) 1,000 ml @ 40 mls/hr Q24H IV Last administered on 04:17; Admin Dose 40 MLS/HR; Start 05/16/16 at 23:01 Ondansetron HCl (Zofran Inj) 4 mg Q6H PRN IV NAUSEA AND/OR VOMITING; Start 05/16 at 23:30 Acetaminophen (Tylenol Tab) 650 mg Q6H PRN PO PAIN LEVEL 1-3 OR FEVER Last administered on 05/20/16 10:44; Admin Dose 650 MG; Start 05/16/16 at 23:30 Acetaminophen (Tylenol Supp) 650 mg Q6H PRN [place] PAIN LEVEL 1-3 OR FEVER; Start 05/16/16 at 23:30 Ibuprofen (Motrin) 600 mg Q6H PRN PO PAIN LEVEL 1-3 Last administered on 14:56; Admin Dose 600 MG; Start 05/16/16 at 23:30 Docusate Sodium (Colace) 100 mg Q12H PRN PO CONSTIPATION; Start 05/16/16 at 23: 30 Magnesium Hydroxide (Milk Of Mag) 30 ml DAILY PRN PO CONSTIPATION; Start at 23:30 Bisacodyl (Dulcolax) 5 mg DAILY PRN PO CONSTIPATION; Start 05/16/16 at 23:30 Bisacodyl (Dulcolax Supp) 10 mg DAILY PRN [place] CONSTIPATION; Start 05/16/16 at 23: 30 Sodium Biphosphate/ Sodium Phosphate (Fleet Enema) 133 ml DAILY PRN [place] CONSTIPATION; Start 05/16/16 at 23:30 Enoxaparin Sodium (Lovenox) 40 mg DAILY SC Last administered on 05/21/16 09:29 ; Admin Dose 40 MG; Start 05/17/16 at 09:00 Levofloxacin 500 mg 500 mg DAILY@06 PO Last administered on 05/21/16 05:21; Admin Dose 500 MG; Start 05/17/16 at 17:00 Vancomycin HCl (Vancocin) 250 ml @ 125 mls/hr Q12H IVPB Last administered on 05:21; Admin Dose 125 MLS/HR; Start 05/18/16 at 06:00 Collagenase (Santyl) 1 applic DAILY TOP Last administered on 05/20/16 10:41; Admin Dose 1 APPLIC; Start 05/17/16 at 21:00 Pantoprazole (Protonix Tab) 40 mg DAILY@06 PO Last administered on 05/21/16 05: 21; Admin Dose 40 MG; Start 05/19/16 at 06:00 POP YOUNG NP May 21, 2016 12:22
--- NOTE | 2016-05-21 21:01 | PN ---
Date/Time of Note Date/Time of Note DATE: 05/21/16 TIME: 21:00 Assessment/Plan VTE Prophylaxis VTE Prophylaxis Intervention: other Lines/Catheters IV Catheter Type (from Nrsg): Peripheral IV Urinary Cath still in place: Yes Reason Cath still needed: other (indicate) Assessment/Plan Chief Complaint/Hosp Course IMPRESSION: 1. Patient has a decubitus wound of the lower extremity. 2. The patient has multiple sclerosis, urinary incontinence, constipation, neuropathy. 3 OSTEOMYELITES PLAN PER ID PODIATRY SEEN ANTIBIOTIC SNF PLACEMENT picc line Problems: Subjective 24 Hr Interval Summary Cardiovascular: no complaints Gastrointestinal: no complaints Exam/Review of Systems Vital Signs Vitals Vital Signs Date Time Temp Pulse Resp B/P Pulse Ox O2 Delivery O2 Flow Rate FiO2 05/21/16 07:55 97.8 90 18 123/57 97 Intake and Output 05/20/16 05/20/16 05/21/16 15:00 23:00 07:00 Intake Total 3050 ml 1060 ml Output Total 4000 ml 1000 ml Balance -950 ml 60 ml Exam Respiratory: clear to auscultation Cardiovascular: regular rate and rhythm Gastrointestinal: soft Musculoskeletal: nl extremities to inspection Extremities: normal pulses Results Result Diagram: 05/18/16 0535 05/18/16 0535 Medications Medications Current Medications Baclofen (Lioresal) 20 mg Q4 PRN PO MUSCLE SPASMS Last administered on 18:23; Admin Dose 20 MG; Start 05/16/16 at 23:30 Docusate Sodium (Colace) 250 mg DAILY PO Last administered on 05/21/16 09:16; Admin Dose 250 MG; Start 05/17/16 at 09:00 Acetaminophen/ Hydrocodone Bitart 1 tab 1 tab Q6 PRN PO PAIN Last administered on 05/20/16 13:16; Admin Dose 1 TAB; Start 05/16/16 at 23:30 Sodium Chloride (NS) 1,000 ml @ 40 mls/hr Q24H IV Last administered on 04:17; Admin Dose 40 MLS/HR; Start 05/16/16 at 23:01 Ondansetron HCl (Zofran Inj) 4 mg Q6H PRN IV NAUSEA AND/OR VOMITING; Start 05/16 at 23:30 Acetaminophen (Tylenol Tab) 650 mg Q6H PRN PO PAIN LEVEL 1-3 OR FEVER Last administered on 05/20/16 10:44; Admin Dose 650 MG; Start 05/16/16 at 23:30 Acetaminophen (Tylenol Supp) 650 mg Q6H PRN [place] PAIN LEVEL 1-3 OR FEVER; Start 05/16/16 at 23:30 Ibuprofen (Motrin) 600 mg Q6H PRN PO PAIN LEVEL 1-3 Last administered on 14:56; Admin Dose 600 MG; Start 05/16/16 at 23:30 Docusate Sodium (Colace) 100 mg Q12H PRN PO CONSTIPATION; Start 05/16/16 at 23: 30 Magnesium Hydroxide (Milk Of Mag) 30 ml DAILY PRN PO CONSTIPATION; Start at 23:30 Bisacodyl (Dulcolax) 5 mg DAILY PRN PO CONSTIPATION; Start 05/16/16 at 23:30 Bisacodyl (Dulcolax Supp) 10 mg DAILY PRN [place] CONSTIPATION; Start 05/16/16 at 23: 30 Sodium Biphosphate/ Sodium Phosphate (Fleet Enema) 133 ml DAILY PRN [place] CONSTIPATION; Start 05/16/16 at 23:30 Enoxaparin Sodium (Lovenox) 40 mg DAILY SC Last administered on 05/21/16 09:29 ; Admin Dose 40 MG; Start 05/17/16 at 09:00 Collagenase (Santyl) 1 applic DAILY TOP Last administered on 05/20/16 10:41; Admin Dose 1 APPLIC; Start 05/17/16 at 21:00 Pantoprazole 40 mg 40 mg DAILY@06 PO Last administered on 05/21/16 05:21; Admin Dose 40 MG; Start 05/19/16 at 06:00 Colistimethate Sodium/Sodium Chloride (Coly-Mycin/NS) 100 ml @ 200 mls/hr Q12 IVPB ; Start 05/21/16 at 21:00 SMITH GONZALEZ MD May 21, 2016 21:01
[2016-05-21] MEDS: COLISTIMETHATE 75 MG in SOD CHLORIDE 0.9% 100 ML IVPB SCH (21:18)
[2016-05-21 21:27] VITALS: BP 88/44; RESP 18
[2016-05-21] MEDS: ACETAMINOPHEN 325 MG TAB PO PRN (22:44)
[2016-05-22 00:21] VITALS: BP 105/55; PULSE 73; RESP 16
[2016-05-22] MEDS: BACLOFEN 10 MG TAB PO PRN ×5 (04:26→21:09)
[2016-05-22] MEDS: PANTOPRAZOLE (EC) 40 MG TAB PO SCH (06:06)
[2016-05-22 07:38] VITALS: BP 88/53; RESP 20
--- NOTE | 2016-05-22 08:40 | RADRPT ---
PROCEDURE: XR Right Ankle. CLINICAL INDICATION: Open wound in the 45-year-old female. TECHNIQUE: AP, oblique and lateral views of the right ankle were performed. COMPARISON: No. FINDINGS: The bony elements are rarefied. There is dorsal subluxation of the tibia relative to the talus with widening of the lateral and dorsal ankle mortise. There is subcutaneous emphysema inferior to the fibula with gauze material seen over the lateral skin surface of the ankle. There is breakdown of t he cortex of the distal lateral right fibula. There is a small bone fragment off the distal end of t he right fibula. IMPRESSION: 1. Osteomyelitis involving the distal right fibula. 2. Severe rarefaction of bony elements. Sudek's atrophy or disuse osteoporosis could present in th is fashion. 3. Avulsion fracture off of the distal right fibula. 4. Dorsal subluxation of the distal right tibia. RPTAT:AAJJ Physician Filiberto Date Time Electronically viewed and signed by Rod Cruz Physician on 05/22/2016 08:40 BRANDO/
[2016-05-22] MEDS: COLISTIMETHATE 75 MG in SOD CHLORIDE 0.9% 100 ML IVPB SCH ×2 (08:45→21:09)
[2016-05-22] MEDS: COLLAGENASE 30 GM TUBE TOP SCH (08:45)
[2016-05-22] MEDS: DOCUSATE SODIUM 250 MG CAP PO SCH (08:45)
[2016-05-22] MEDS: ACETAMINOPHEN 325 MG TAB PO PRN ×2 (08:53→17:14)
[2016-05-22] MEDS: ENOXAPARIN 40 MG/0.4 ML SYG SC SCH (10:13)
--- NOTE | 2016-05-22 12:22 | CONS ---
Date/Time of Note Date/Time of Note DATE: 05/22/16 TIME: 12:19 Assessment/Plan Assessment/Plan Chief Complaint/Hosp Course SUBJECTIVE: No acute events. no fevers, sleeping, nad ANTIMICROBIALS: Colistin INDWELLINGS: [place], peripheral IV. PHYSICAL EXAMINATION: GENERAL: This is a fragile, chronically ill-appearing, cachectic, middle-aged woman who is in no distress. HEENT: Head atraumatic, normocephalic. Sclerae anicteric. Buccal mucosa dry. NECK: Supple, trachea midline. CHEST: Rise symmetrical. Breath sounds diminished to bases. HEART: S1, S2. ABDOMEN: Soft, bowel sounds present. EXTREMITIES: With right ankle dressing intact. ASSESSMENT: 1. Right ankle wound with evidence of osteomyelitis per x-ray from another facility===> wound cx + MDRO. 2. Advanced multiple sclerosis. 3. Cachexia. 4. Depression. 5. Anemia. PLAN: The patient remains stable. Continue abx/local wound care per podiatry rec-s, monitor renal f-n. [facility] staff Problems: Consultation Date/Type/Reason Admit Date/Time May 16, 2016 at 21:29 Type of Consultation: ID Exam/Review of Systems Vital Signs Vitals Vital Signs Date Time Temp Pulse Resp B/P Pulse Ox O2 Delivery O2 Flow Rate FiO2 05/22/16 07:38 98.0 58 20 88/53 97 Intake and Output 05/21/16 05/21/16 05/22/16 15:00 23:00 07:00 Intake Total 1830 ml 400 ml Output Total 2600 ml Balance -770 ml 400 ml Results Result Diagram: 05/18/16 0535 05/18/16 0535 Medications Medications Current Medications Baclofen (Lioresal) 20 mg Q4 PRN PO MUSCLE SPASMS Last administered on 08:53; Admin Dose 20 MG; Start 05/16/16 at 23:30 Docusate Sodium (Colace) 250 mg DAILY PO Last administered on 05/22/16 08:45; Admin Dose 250 MG; Start 05/17/16 at 09:00 Acetaminophen/ Hydrocodone Bitart 1 tab 1 tab Q6 PRN PO PAIN Last administered on 05/20/16 13:16; Admin Dose 1 TAB; Start 05/16/16 at 23:30 Sodium Chloride (NS) 1,000 ml @ 40 mls/hr Q24H IV Last administered on 04:17; Admin Dose 40 MLS/HR; Start 05/16/16 at 23:01 Ondansetron HCl (Zofran Inj) 4 mg Q6H PRN IV NAUSEA AND/OR VOMITING; Start 05/16 at 23:30 Acetaminophen (Tylenol Tab) 650 mg Q6H PRN PO PAIN LEVEL 1-3 OR FEVER Last administered on 05/22/16 08:53; Admin Dose 650 MG; Start 05/16/16 at 23:30 Acetaminophen (Tylenol Supp) 650 mg Q6H PRN [place] PAIN LEVEL 1-3 OR FEVER; Start 05/16/16 at 23:30 Ibuprofen (Motrin) 600 mg Q6H PRN PO PAIN LEVEL 1-3 Last administered on 14:56; Admin Dose 600 MG; Start 05/16/16 at 23:30 Docusate Sodium (Colace) 100 mg Q12H PRN PO CONSTIPATION; Start 05/16/16 at 23: 30 Magnesium Hydroxide (Milk Of Mag) 30 ml DAILY PRN PO CONSTIPATION; Start at 23:30 Bisacodyl (Dulcolax) 5 mg DAILY PRN PO CONSTIPATION; Start 05/16/16 at 23:30 Bisacodyl (Dulcolax Supp) 10 mg DAILY PRN [place] CONSTIPATION; Start 05/16/16 at 23: 30 Sodium Biphosphate/ Sodium Phosphate (Fleet Enema) 133 ml DAILY PRN [place] CONSTIPATION; Start 05/16/16 at 23:30 Enoxaparin Sodium (Lovenox) 40 mg DAILY SC Last administered on 05/22/16 10:13 ; Admin Dose 40 MG; Start 05/17/16 at 09:00 Collagenase (Santyl) 1 applic DAILY TOP Last administered on 05/22/16 08:45; Admin Dose 1 APPLIC; Start 05/17/16 at 21:00 Pantoprazole 40 mg 40 mg DAILY@06 PO Last administered on 05/22/16 06:06; Admin Dose 40 MG; Start 05/19/16 at 06:00 Colistimethate Sodium/Sodium Chloride (Coly-Mycin/NS) 100 ml @ 200 mls/hr Q12 IVPB Last administered on 05/22/16 08:45; Admin Dose 200 MLS/HR; Start 05/21/16 at 21:00 POP YOUNG NP May 22, 2016 12:22
[2016-05-22] MEDS: HYDROCODONE/APAP (5/325) TAB PO PRN (13:30)
--- NOTE | 2016-05-22 17:45 | RADRPT ---
PROCEDURE: Ultrasound guidance for placement of needle in left upper extremity vein. CLINICAL INDICATION: Venous access. TECHNIQUE: Limited sonography of the left upper extremity was performed. Ultrasound images were recorded and s tored in the patient's medical record. COMPARISON: None. FINDINGS: The ultrasound images demonstrate a patent left upper extremity vein. The PICC line was inserted by the PICC line nurse. IMPRESSION: 1. Ultrasound guidance for a needle placement in a left upper extremity vein. 2. The left upper extremity vein is patent. RPTAT: QQ .Asif Rodriguez MD, MD Date Time Electronically viewed and signed by .Asif Rodriguez MD, MD on 05/22/2016 17:45 .R/
--- NOTE | 2016-05-22 17:45 | RADRPT ---
PROCEDURE: XR Chest. CLINICAL INDICATION: Check PICC line position. TECHNIQUE: Single frontal view. COMPARISON: 01/10/2016. FINDINGS: There is a left arm PICC line with the tip in the lower superior vena cava. The lungs are clear. The heart size is normal. There is no pleural effusion. There is no pneumothorax. IMPRESSION: 1. Satisfactory position of left arm PICC line. 2. Otherwise normal chest radiograph. RPTAT: QQ .Asif Rodriguez MD, MD Date Time Electronically viewed and signed by .Asif Rodriguez MD, MD on 05/22/2016 17:45 .R/
--- NOTE | 2016-05-22 18:25 | PN ---
Date/Time of Note Date/Time of Note DATE: 05/22/16 TIME: 18:23 Assessment/Plan VTE Prophylaxis VTE Prophylaxis Intervention: other Lines/Catheters IV Catheter Type (from Nrsg): PICC Line Central line still needed: Yes Urinary Cath still in place: Yes Reason Cath still needed: other (indicate) Assessment/Plan Chief Complaint/Hosp Course IMPRESSION: 1. Patient has a decubitus wound of the lower extremity. 2. The patient has multiple sclerosis, urinary incontinence, constipation, neuropathy. 3 OSTEOMYELITES PLAN PER ID PODIATRY SEEN ANTIBIOTIC SNF PLACEMENT picc line dc to snf Problems: Subjective 24 Hr Interval Summary Cardiovascular: no complaints Gastrointestinal: no complaints Genitourinary: no complaints Exam/Review of Systems Vital Signs Vitals Vital Signs Date Time Temp Pulse Resp B/P Pulse Ox O2 Delivery O2 Flow Rate FiO2 05/22/16 07:38 98.0 58 20 88/53 97 Intake and Output 05/21/16 05/21/16 05/22/16 15:00 23:00 07:00 Intake Total 1830 ml 400 ml Output Total 2600 ml Balance -770 ml 400 ml Exam Respiratory: clear to auscultation Cardiovascular: regular rate and rhythm Gastrointestinal: soft Musculoskeletal: nl extremities to inspection Results Result Diagram: 05/18/16 0535 05/18/16 0535 Medications Medications Current Medications Baclofen (Lioresal) 20 mg Q4 PRN PO MUSCLE SPASMS Last administered on 17:14; Admin Dose 20 MG; Start 05/16/16 at 23:30 Docusate Sodium (Colace) 250 mg DAILY PO Last administered on 05/22/16 08:45; Admin Dose 250 MG; Start 05/17/16 at 09:00 Acetaminophen/ Hydrocodone Bitart 1 tab 1 tab Q6 PRN PO PAIN Last administered on 05/22/16 13:30; Admin Dose 1 TAB; Start 05/16/16 at 23:30 Sodium Chloride (NS) 1,000 ml @ 40 mls/hr Q24H IV Last administered on 04:17; Admin Dose 40 MLS/HR; Start 05/16/16 at 23:01 Ondansetron HCl (Zofran Inj) 4 mg Q6H PRN IV NAUSEA AND/OR VOMITING; Start 05/16 at 23:30 Acetaminophen (Tylenol Tab) 650 mg Q6H PRN PO PAIN LEVEL 1-3 OR FEVER Last administered on 05/22/16 17:14; Admin Dose 650 MG; Start 05/16/16 at 23:30 Acetaminophen (Tylenol Supp) 650 mg Q6H PRN [place] PAIN LEVEL 1-3 OR FEVER; Start 05/16/16 at 23:30 Ibuprofen (Motrin) 600 mg Q6H PRN PO PAIN LEVEL 1-3 Last administered on 14:56; Admin Dose 600 MG; Start 05/16/16 at 23:30 Docusate Sodium (Colace) 100 mg Q12H PRN PO CONSTIPATION; Start 05/16/16 at 23: 30 Magnesium Hydroxide (Milk Of Mag) 30 ml DAILY PRN PO CONSTIPATION; Start at 23:30 Bisacodyl (Dulcolax) 5 mg DAILY PRN PO CONSTIPATION; Start 05/16/16 at 23:30 Bisacodyl (Dulcolax Supp) 10 mg DAILY PRN [place] CONSTIPATION; Start 05/16/16 at 23: 30 Sodium Biphosphate/ Sodium Phosphate (Fleet Enema) 133 ml DAILY PRN [place] CONSTIPATION; Start 05/16/16 at 23:30 Enoxaparin Sodium (Lovenox) 40 mg DAILY SC Last administered on 05/22/16 10:13 ; Admin Dose 40 MG; Start 05/17/16 at 09:00 Collagenase (Santyl) 1 applic DAILY TOP Last administered on 05/22/16 08:45; Admin Dose 1 APPLIC; Start 05/17/16 at 21:00 Pantoprazole 40 mg 40 mg DAILY@06 PO Last administered on 05/22/16 06:06; Admin Dose 40 MG; Start 05/19/16 at 06:00 Colistimethate Sodium/Sodium Chloride (Coly-Mycin/NS) 100 ml @ 200 mls/hr Q12 IVPB Last administered on 05/22/16 08:45; Admin Dose 200 MLS/HR; Start 05/21/16 at 21:00 IV Flush (NS 10 ml) 10 ml PRN PRN IV IV PROTOCOL; Start 05/22/16 at 17:00 SMITH GONZALEZ MD May 22, 2016 18:25
[2016-05-22 19:00] VITALS: BP 93/50; RESP 18
[2016-05-22] MEDS: SOD CHLORIDE 0.9% 1,000 ML IV SCH (23:01)
--- NOTE | 2016-05-22 23:51 | PN ---
Date/Time of Note Date/Time of Note DATE: 05/22/16 TIME: 23:49 Assessment/Plan Lines/Catheters IV Catheter Type (from Nrsg): PICC Line [place] in Place (from Nrsg): Yes Assessment/Plan Problems: (1) Ulcer of right ankle (2) Contracture of muscle of lower extremity, bilateral (3) Multiple sclerosis Comment: Continue offloading of the right lateral malleolus area. Daily dressing change to continue. Patient will be followed in-house. Subjective 24 Hr Interval Summary Patient was seen and examined at bedside. Reports no pain in the lower extremities. She is status post MS. Constitutional: no complaints Pain Control: well controlled Exam/Review of Systems Vital Signs Vitals Vital Signs Date Time Temp Pulse Resp B/P Pulse Ox O2 Delivery O2 Flow Rate FiO2 05/22/16 19:00 98.2 67 18 93/50 96 Intake and Output 05/21/16 05/21/16 05/22/16 15:00 23:00 07:00 Intake Total 1830 ml 400 ml Output Total 2600 ml Balance -770 ml 400 ml Exam Free Text/Dictation Patient is laying supine in bed. Severe lower extremity contractures present. Right ankle open wound not changed much since last visit. No drainage of pus. There is mild serosanguineous drainage noted with mild malodor. There is nontender to palpation. No other changes noted on examination. Results Result Diagram: 05/18/16 0535 05/18/16 0535 JEFFERSON WHEELER DPM May 22, 2016 23:50
[2016-05-23] MEDS: BACLOFEN 10 MG TAB PO PRN ×3 (05:17→14:14)
[2016-05-23] MEDS: PANTOPRAZOLE (EC) 40 MG TAB PO SCH (05:17)
[2016-05-23 06:21] LABS: CREATININE 0.39 mg/dl (0.44-1.00)
[2016-05-23 08:34] VITALS: BP 99/54; RESP 18
[2016-05-23] MEDS: DOCUSATE SODIUM 250 MG CAP PO SCH (09:03)
[2016-05-23] MEDS: ACETAMINOPHEN 325 MG TAB PO PRN ×2 (09:03→14:40)
[2016-05-23] MEDS: COLISTIMETHATE 75 MG in SOD CHLORIDE 0.9% 100 ML IVPB SCH (09:04)
[2016-05-23] MEDS: COLLAGENASE 30 GM TUBE TOP SCH (09:04)
[2016-05-23] MEDS ORDERED: SOD CHLORIDE 0.9% 100 ML ONE (09:34)
[2016-05-23] MEDS: ENOXAPARIN 40 MG/0.4 ML SYG SC SCH (10:11)
--- NOTE | 2016-05-23 13:25 | CONS ---
Date/Time of Note Date/Time of Note DATE: 05/23/16 TIME: 13:25 Assessment/Plan Assessment/Plan Chief Complaint/Hosp Course SUBJECTIVE: No acute events. no fevers, sleeping, nad ANTIMICROBIALS: [place] INDWELLINGS: [place], peripheral IV. PHYSICAL EXAMINATION: GENERAL: This is a fragile, chronically ill-appearing, cachectic, middle-aged woman who is in no distress. HEENT: Head atraumatic, normocephalic. Sclerae anicteric. Buccal mucosa dry. NECK: Supple, trachea midline. CHEST: Rise symmetrical. Breath sounds diminished to bases. HEART: S1, S2. ABDOMEN: Soft, bowel sounds present. EXTREMITIES: With right ankle dressing intact. ASSESSMENT: 1. Right ankle wound with evidence of osteomyelitis per x-ray from another facility===> wound cx + MDRO. 2. Advanced multiple sclerosis. 3. Cachexia. 4. Depression. 5. Anemia. PLAN: The patient remains stable. Continue abx/local wound care per podiatry rec-s, monitor renal f-n. staff Problems: Consultation Date/Type/Reason Admit Date/Time May 16, 2016 at 21:29 Type of Consultation: ID Exam/Review of Systems Vital Signs Vitals Vital Signs Date Time Temp Pulse Resp B/P Pulse Ox O2 Delivery O2 Flow Rate FiO2 05/23/16 08:34 98.4 61 18 99/54 98 Intake and Output 05/22/16 05/22/16 05/23/16 15:00 23:00 07:00 Intake Total 1620 ml 830 ml Output Total 1000 ml 1450 ml Balance 620 ml -620 ml Results Result Diagram: 05/23/16 0511 Results 24 hrs Laboratory Tests Test 05/23/16 05:11 Blood Urea Nitrogen 7 Creatinine 0.39 L Medications Medications Current Medications Baclofen (Lioresal) 20 mg Q4 PRN PO MUSCLE SPASMS Last administered on 09:04; Admin Dose 20 MG; Start 05/16/16 at 23:30 Docusate Sodium (Colace) 250 mg DAILY PO Last administered on 05/23/16 09:03; Admin Dose 250 MG; Start 05/17/16 at 09:00 Acetaminophen/ Hydrocodone Bitart 1 tab 1 tab Q6 PRN PO PAIN Last administered on 05/22/16 13:30; Admin Dose 1 TAB; Start 05/16/16 at 23:30 Sodium Chloride (NS) 1,000 ml @ 40 mls/hr Q24H IV Last administered on 04:17; Admin Dose 40 MLS/HR; Start 05/16/16 at 23:01 Ondansetron HCl (Zofran Inj) 4 mg Q6H PRN IV NAUSEA AND/OR VOMITING; Start 05/16 at 23:30 Acetaminophen (Tylenol Tab) 650 mg Q6H PRN PO PAIN LEVEL 1-3 OR FEVER Last administered on 05/23/16 09:03; Admin Dose 650 MG; Start 05/16/16 at 23:30 Acetaminophen (Tylenol Supp) 650 mg Q6H PRN [place] PAIN LEVEL 1-3 OR FEVER; Start 05/16/16 at 23:30 Ibuprofen (Motrin) 600 mg Q6H PRN PO PAIN LEVEL 1-3 Last administered on 14:56; Admin Dose 600 MG; Start 05/16/16 at 23:30 Docusate Sodium (Colace) 100 mg Q12H PRN PO CONSTIPATION; Start 05/16/16 at 23: 30 Magnesium Hydroxide (Milk Of Mag) 30 ml DAILY PRN PO CONSTIPATION; Start at 23:30 Bisacodyl (Dulcolax) 5 mg DAILY PRN PO CONSTIPATION; Start 05/16/16 at 23:30 Bisacodyl (Dulcolax Supp) 10 mg DAILY PRN [place] CONSTIPATION; Start 05/16/16 at 23: 30 Sodium Biphosphate/ Sodium Phosphate (Fleet Enema) 133 ml DAILY PRN [place] CONSTIPATION; Start 05/16/16 at 23:30 Enoxaparin Sodium (Lovenox) 40 mg DAILY SC Last administered on 05/23/16 10:11 ; Admin Dose 40 MG; Start 05/17/16 at 09:00 Collagenase (Santyl) 1 applic DAILY TOP Last administered on 05/23/16 09:04; Admin Dose 1 APPLIC; Start 05/17/16 at 21:00 Pantoprazole 40 mg 40 mg DAILY@06 PO Last administered on 05/23/16 05:17; Admin Dose 40 MG; Start 05/19/16 at 06:00 Colistimethate Sodium/Sodium Chloride (Coly-Mycin/NS) 100 ml @ 200 mls/hr Q12 IVPB Last administered on 05/23/16t 09:04; Admin Dose 200 MLS/HR; Start 05/21/16 at 21:00 IV Flush (NS 10 ml) 10 ml PRN PRN IV IV PROTOCOL; Start 05/22/16 at 17:00 POP YOUNG NP May 23, 2016 13:25
[2016-05-23] MEDS: SOD CHLORIDE 0.9% 1,000 ML IV SCH (15:24)
--- NOTE | 2016-06-07 15:44 | QN ---
Documentation Comment [id number] SMITH GONZALEZ MD Jun 07, 2016 15:44
--- NOTE | 2016-06-07 17:10 | DS ---
DATE OF ADMISSION: 05/17/2016 DATE OF DISCHARGE: 05/23/2016 The patient was admitted with diagnosis of decubitus wound of the lower extremity. The patient has multiple sclerosis, urinary incontinence, constipation, neuropathy. Dr. Morgan Irwin was called to be in consultation. Dr. Mendoza was called to see this patient in consultation. Their impression, right ankle wound with evidence of osteomyelitis, _ multiple sclerosis, history of depression, anemia. The patient required wound care, antibiotic. was resolved and the patient is stable to be discharged to SNF. DISCHARGE DIAGNOSES: Include: 1. wound of the lower extremities. 2. Multiple sclerosis. 3. Urinary incontinence. 4. Constipation. 5. Neuropathy. 6. Osteomyelitis. DISCHARGE MEDICATIONS: Patient to continue on: 1. Bisacodyl. 2. bowel care 3. Levofloxacin. 4. Protonix. 5. Vancomycin 6. Baclofen. 7. Tecfidera. 8. Docusate sodium. 9. Hydrocodone. 10. Ibuprofen. Dictated By: SMITH PINEDO/CAN Conf#: [id number] DID#: [id number] MTDD
== END 2016-05-23 19:25 | DRG 539 ==
LOC: MS2 21:29 → UNDOADMIN 21:29 → MS2 05-17 07:00 → UNDODISIN 05-23 19:25
PROVIDERS: ADMIT Internal Medicine Nephrology; ATTEND Internal Medicine Nephrology
PROC: 02HV33Z Insertion of Infusion Device into Superior Vena Cava, Percutaneous Approach (ICD-10-PCS; principal; 2016-05-22)
PROC: B548ZZA Ultrasonography of Superior Vena Cava, Guidance (ICD-10-PCS; 2016-05-22)
DX: M86.8X7 Other osteomyelitis, ankle and foot (principal); L89.514 Pressure ulcer of right ankle, stage 4; R64 Cachexia; G35 Multiple sclerosis; M41.9 Scoliosis, unspecified; G62.9 Polyneuropathy, unspecified; Z68.1 Body mass index [BMI] 19.9 or less, adult; Z87.440 Personal history of urinary (tract) infections; F32.9 Major depressive disorder, single episode, unspecified; K59.00 Constipation, unspecified; M81.0 Age-related osteoporosis without current pathological fracture; D64.9 Anemia, unspecified; R32 Unspecified urinary incontinence; M62.462 Contracture of muscle, left lower leg; M62.461 Contracture of muscle, right lower leg; Z16.24 Resistance to multiple antibiotics
CPT/HCPCS: 36569; 71010; 73600; 76937; 80053; 80202; 82565; 84520; 85025; 87040; 87070; 87081; C9113; J1650; J3370; J7030; J7040; J7050

== ENCOUNTER 2016-12-16 21:00 | Emergency (ER) | payer BC, OTHER ==
[~2016-12-16] VITALS: Ht 177.8 cm; Wt 55.0 kg
[~2016-12-16 21:00] MED LIST changes: +BISA10SU75 PR; -FLUC200T36 PO; +LEVO500T72 PO; +PANT40TA4 PO; +SAN30GM TOP; +Vancomycin Iv Per Pharmacy XX
[2016-12-16 21:08] VITALS: Ht 177.8 cm; Wt 55.0 kg
[2016-12-16] MEDS ORDERED: SODIUM CHLORIDE 0.9% 1L BAG IV* STA (21:12)
[2016-12-16 21:45] LABS: BASOPHILS % 0.1 % (0.0-2.0); EOSINOPHILS # 0.2 10^3/ul (0.0-0.5); EOSINOPHILS % 1.6 % (0.0-7.0); HEMATOCRIT 36.4 % (37.0-47.0); LYMPHOCYTES # 0.8 10^3/ul (0.8-2.9); LYMPHOCYTES % 7.3 % (15.0-51.0); MEAN CORPUSCULAR HEMOGLOBIN 29.8 pg (29.0-33.0); MEAN CORPUSCULAR VOLUME 90.3 fl (82.0-101.0); MEAN PLATELET VOLUME 10.7 fl (7.4-10.4); MONOCYTES % 9.5 % (0.0-11.0); NEUTROPHIL # 8.4 10^3/ul (1.6-7.5); NEUTROPHILS % 81.1 % (39.0-77.0); PLATELET COUNT 290 10^3/UL (140-415); RED BLOOD COUNT 4.03 10^6/ul (4.20-5.40); RED CELL DISTRIBUTION WIDTH 13.3 % (11.5-14.5); WHITE BLOOD COUNT 10.3 10^3/ul (4.8-10.8)
[2016-12-16 21:56] LABS: INR 1.08; PT RATIO 1.1
[2016-12-16 21:57] LABS: PARTIAL THROMBOPLASTIN TIME 44.5 Sec (25.0-35.0)
[2016-12-16 21:59] LABS: ALANINE AMINOTRANSFERASE 20 IU/L (13-69); ALBUMIN/GLOBULIN RATIO 0.93; ALKALINE PHOSPHATASE 85 IU/L (42-121); ANION GAP 13 (8-16); ASPARTATE AMINO TRANSFERASE 18 IU/L (15-46); BILIRUBIN,INDIRECT 0.2 mg/dl (0-1.1); BILIRUBIN,TOTAL 0.2 mg/dl (0.2-1.3); BLOOD UREA NITROGEN 33 mg/dl (7-20); CALCIUM 9.7 mg/dl (8.4-10.2); CARBON DIOXIDE 29 mmol/L (21-31); CHLORIDE 100 mmol/L (97-110); CREATININE 1.29 mg/dl (0.44-1.00); GLUCOSE 111 mg/dl (70-220); SODIUM 138 mmol/L (135-144); TOTAL PROTEIN 8.3 g/dl (6.1-8.1)
[2016-12-16 22:18] LABS: TROPONIN-I < 0.012 ng/ml (0.00-0.12)
--- NOTE | 2016-12-16 22:18 | RADRPT ---
PROCEDURE: XR Chest. CLINICAL INDICATION: Possible sepsis. TECHNIQUE: Single frontal view of the chest was obtained. COMPARISON: None FINDINGS: The soft tissues are normal. There is a dextroscoliosis of the mid thoracic spine. The heart, card iomediastinal silhouette and hilar structures are normal. The pulmonary vasculature is normal. Ther e is a left-sided aorta. The lungs are clear. The costophrenic angles are normal. IMPRESSION: 1. 27 degrees dextro scoliosis of the mid thoracic spine. 2. No evidence of active cardiopulmonary disease. RPTAT:AAJJ Physician Filiberto Date Time Electronically viewed and signed by Rod Cruz Physician on 12/16/2016 22:17 BRANDO/
[2016-12-16] MEDS ORDERED: HYDROmorphONE 1 MG/ML SYG IV STA ×2 (22:20→22:59)
[2016-12-16 22:25] LABS: ADD UMIC YES; UR ASCORBIC ACID 20 mg/dL (NEGATIVE); UR BACTERIA MANY /HPF (NONE SEEN); UR BILIRUBIN (Dip) NEGATIVE (NEGATIVE); UR BLOOD (Dip) NEGATIVE (NEGATIVE); UR CLARITY TURBID (CLEAR); UR COLOR YELLOW (YELLOW); UR GLUCOSE (Dip) NEGATIVE (NEGATIVE); UR KETONES (Dip) NEGATIVE (NEGATIVE); UR LEUKOCYTE ESTERASE (Dip) 3+ Leu/ul (NEGATIVE); UR MUCUS FEW /HPF (NONE SEEN); UR NITRITE (Dip) NEGATIVE (NEGATIVE); UR RBC 20 /HPF (0-5); UR SPECIFIC GRAVITY (Dip) 1.013 (1.003-1.030); UR TOTAL PROTEIN (Dip) 2+ mg/dl (NEGATIVE); UR UROBILINOGEN (Dip) NEGATIVE (NEGATIVE)
[2016-12-16] MEDS ORDERED: AMPICILLIN 1 GM/NS (PMX) 50 ML IVPB ONE (23:00)
[2016-12-16] MEDS ORDERED: CEFTRIAXONE 1 GM/50 ML (PMX) 50 ML IVPB ONE (23:00)
--- NOTE | 2016-12-16 23:12 | ERA ---
ER Documentation Chief Complaint Date/Time DATE: 12/16/16 TIME: 23:07 Chief Complaint ap w/ dysuria x 2 days, hx of fqt UTI's, MS, on bactrim x 2days HPI This is a 45-year-old female with a history of MS who presents to the emergency room for evaluation of abdominal pain and dysuria. The patient states that she is having abdominal pain in the lower portion of her abdomen which is similar to previous abdominal pain she had when she had a urinary tract infection. The patient states that she has been on Bactrim for the past 2 days with no relief of her symptoms. She states that she is having chills and thinks she has a fever as well. She denies any aggravating or relieving factors for her symptoms ROS All systems reviewed and are negative except as per history of present illness. Medications Home Meds Active Scripts [Vancomycin Iv Per Pharmacy] 1 EA EACH No Conflict Check, 0 EA XX .PER PROTOCOL for 30 Days Prov:SMITH GONZALEZ MD 05/20/16 Pantoprazole* (Pantoprazole*) 40 Mg Tablet., 40 MG PO DAILY@06 for 28 Days Prov:SMITH GONZALEZ MD 05/20/16 Levofloxacin* (Levaquin*) 500 Mg Tablet, 500 MG PO DAILY@06 for 30 Days, TAB Prov:SMITH GONZALEZ MD 05/20/16 Collagenase* (Santyl*) 30 Gm Oint..gm., 1 APPLIC TOP DAILY for 28 Days Prov:SMITH GONZALEZ MD 05/20/16 Bisacodyl* (Bisacodyl*) 10 Mg Supp, 10 MG MT DAILY Y for CONSTIPATION for 14 Days, SUPP Prov:SMITH GONZALEZ MD 05/20/16 Reported Medications Hydrocodone/Acetaminophen ([place] 5-325 Tablet) 1 Each Tablet, 1 EACH PO Q6 Y for PAIN, TAB 01/09/16 [gabapentin] No Conflict Check 01/09/16 Docusate Sodium* (Dok*) 250 Mg Capsule, 250 MG PO DAILY, #30 CAP 01/05/16 Dimethyl Fumarate (Tecfidera) 120 Mg Capsule.dr, 120 MG PO BID, CAP 01/05/16 Ibuprofen (ADVIL LIQUI-GELS) 200 Mg Capsule, 200 MG PO Y for PAIN, CAP 11/24/15 Baclofen* (Baclofen*) 20 Mg Tablet, 20 MG PO Q4 Y for MUSCLE SPASMS, TAB 01/14/15 Allergies Allergies: Coded Allergies: Sulfa (Sulfonamide Antibiotics) (Verified Allergy, Intermediate, Rash, ) prochlorperazine (Verified Allergy, Intermediate, SOB, Anxiety, 01/06/16) morphine (Verified Adverse Reaction, Unknown, mood swings, 01/06/16) PMhx/Soc History of Surgery: Yes (PICCLINE PLACEMENT) Anesthesia Reaction: No Hx Neurological Disorder: Yes (MULTIPLE SCLEROSIS) Hx Respiratory Disorders: No Hx Cardiac Disorders: No Hx Psychiatric Problems: No Hx Miscellaneous Medical Probl: Yes (DAVIES CATH IN PLACE) Hx Alcohol Use: No Hx Substance Use: No Hx Tobacco Use: No Smoking Status: Never smoker Physical Exam Vitals Vital Signs Date Time Temp Pulse Resp B/P Pulse Ox O2 Delivery O2 Flow Rate FiO2 12/16/16 21:30 99.6 100 14 135/104 99 Room Air 12/16/16 21:08 100.5 104 20 109/59 95 Physical Exam INITIAL VITAL SIGNS: Reviewed by me GENERAL: The patient is well developed and appropriate for usual state of health in no apparent distress HEENT: Dry mucous membranes, pupils equal, round, and reactive to light. EOMI. There is no scleral icterus. NECK: C-spine is soft and supple, there is no meningismus. There is no cervical lymphadenopathy. LUNGS: Clear to auscultation bilaterally. There are no rales, wheezes or rhonchi. HEART: Regular rate and rhythm, no murmurs, clicks, rubs or gallops. ABDOMEN: Pubic tenderness to palpation, soft, non-tender, non-distended. There are bowel sounds in all four quadrants. No rebound or guarding. EXTREMITIES: There is no peripheral cyanosis or edema. No focal swelling or erythema. NEUROLOGICAL: Tract of the extremities SKIN: There is no apparent rash or petechiae. HEME/LYMPHATIC: There is no evidence of excessive bruising or lymphedema. PSYCHIATRIC: The patient does not appear anxious or depressed. Result Diagram: 12/16/16210412/16/162104 Results 24 hrs Laboratory Tests Test 12/16/16 21:05 12/16/16 21:59 White Blood Count 10.310^3/ul Red Blood Count 4.0310^6/ul Hemoglobin 12.0g/dl Hematocrit 36.4% Mean Corpuscular Volume 90.3fl Mean Corpuscular Hemoglobin 29.8pg Mean Corpuscular Hemoglobin Concent 33.0g/dl Red Cell Distribution Width 13.3% Platelet Count 34394^3/UL Mean Platelet Volume 10.7fl Neutrophils % 81.1% Lymphocytes % 7.3% Monocytes % 9.5% Eosinophils % 1.6% Basophils % 0.1% Nucleated Red Blood Cells % 0.0/100WBC Neutrophils # 8.410^3/ul Lymphocytes # 0.810^3/ul Monocytes # 1.010^3/ul Eosinophils # 0.210^3/ul Basophils # 0.010^3/ul Nucleated Red Blood Cells # 0.010^3/ul Prothrombin Time 14.0Sec Prothrombin Time Ratio 1.1 INR International Normalized Ratio 1.08 Activated Partial Thromboplast Time 44.5Sec Sodium Level 138mmol/L Potassium Level 4.0mmol/L Chloride Level 100mmol/L Carbon Dioxide Level 29mmol/L Anion Gap 13 Blood Urea Nitrogen 33mg/dl Creatinine 1.29mg/dl Glucose Level 111mg/dl Lactic Acid Level 1.4mmol/L Calcium Level 9.7mg/dl Total Bilirubin 0.2mg/dl Direct Bilirubin 0.00mg/dl Indirect Bilirubin 0.2mg/dl Aspartate Amino Transf (AST/SGOT) 18IU/L Alanine Aminotransferase (ALT/SGPT) 20IU/L Alkaline Phosphatase 85IU/L Troponin I < 0.012ng/ml Total Protein 8.3g/dl Albumin 4.0g/dl Globulin 4.30g/dl Albumin/Globulin Ratio 0.93 Urine Color YELLOW Urine Clarity TURBID Urine pH 8.0 Urine Specific [place] 1.013 Urine Ketones NEGATIVEmg/dL Urine Nitrite NEGATIVEmg/dL Urine Bilirubin NEGATIVEmg/dL Urine Urobilinogen NEGATIVEmg/dL Urine Leukocyte Esterase 3+Monika/ul Urine Microscopic RBC 20/HPF Urine Microscopic WBC > 182/HPF Urine Bacteria MANY/HPF Urine Mucus FEW/HPF Urine Hemoglobin NEGATIVEmg/dL Urine Glucose NEGATIVEmg/dL Urine Total Protein 2+mg/dl Current Medications Medications (Trade) Dose Ordered Sig/Joe Route PRN Reason Start Time Stop Time Status Last Admin Dose Admin Sodium Chloride (NS) 2,000 ml BOLUS OVER 2 HOURS STAT IV* 12/16/16 21:12 12/16/16 21:13 DC Hydromorphone HCl 0.5 mg 0.5 mg ONCE STAT IV 12/16/16 22:20 12/16/16 22:21 DC 12/16/16 22:24 Ceftriaxone Sodium 50 ml @ 100 mls/hr ONCE ONCE IVPB 12/16/16 23:00 12/16/16 23:29 12/16/16 22:53 Ampicillin (Ampicillin 1 Gm/ NS (Pmx)) 50 ml @ 100 mls/hr ONCE ONCE IVPB 12/16/16 23:00 12/16/16 23:29 12/16/16 22:53 Hydromorphone HCl (Dilaudid) 1 mg ONCE STAT IV 12/16/16 22:59 12/16/16 23:00 DC 12/16/16 23:10 Lorazepam (Ativan) 1 mg ONCE ONCE IV 12/16/16 23:30 12/16/16 23:31 Procedures/MDM This 45-year-old female presents to the ER for evaluation of abdominal pain. When I evaluated patient she was febrile tachycardic. She did have a septic workup started in the emergency room was just reveals nitrite positive urinary tract infection. This patient has had previous ESBL in the urine and her previous sensitivities did show sensitivity to ampicillin, the patient was given 1 g of ampicillin in the emergency room and was given a gram of Rocephin. I did contact her admitting physician as she is a [facility] patient. I have spoken to Dr. Zavaleta who states that this patient must be transferred [facility] to [facility] as she is capitated there. I have relayed this information to the patient who is in agreement with the plan of care. The patient does have a mean arterial pressure greater than 65 with no need for vasopressors at this time. Departure Diagnosis: Primary Impression: Sepsis Additional Impressions: Acute cystitis Multiple sclerosis Condition: Stable PILO JOYCE DO Dec 16, 2016 23:12
[2016-12-16] MEDS ORDERED: LORAZEPAM 2 MG INJ IV ONE (23:30)
[2016-12-17 02:04] VITALS: BP 95/70; PULSE 89; RESP 12; TEMP 99.2
== END 2016-12-17 03:40 | disposition short-term general hospital (02) ==
LOC: E/R 21:00
DX: A41.9 Sepsis, unspecified organism (principal); N30.00 Acute cystitis without hematuria; G35 Multiple sclerosis; R07.9 Chest pain, unspecified
CPT/HCPCS: 36415; 71010; 80053; 81001; 83605; 84484; 85025; 85610; 85730; 87040; 87086; 93005; 96374; 96375; 96376; J0290; J0696; J1170; J2060; J7030; Z7502